=== PATIENT | male | born 1985 | race Caucasian/White ===

== ENCOUNTER 2019-01-29 00:19 | Inpatient (IN) | payer MEDICAID, BC, OTHER ==
[2019-01-29] MEDS: HYDROmorphONE 0.5 MG/0.5 ML SYG IV ×2 (01:35→02:17)
[2019-01-29] MEDS: DIPHTH/TET/ACEL PERTUSS (ADULT) 0.5 ML VIAL IM* (01:36)
[2019-01-29 02:04] LABS: ADD MAN DIFF? NO; BASOPHILS % 0.2 % (0.0-2.0); HEMATOCRIT 33.5 % (42.0-52.0); HEMOGLOBIN 9.9 g/dl (14.0-18.0); LYMPHOCYTES # 1.4 10^3/ul (0.8-2.9); LYMPHOCYTES % 15.3 % (15.0-51.0); MEAN CORPUSCULAR HEMOGLOBIN 20.9 pg (29.0-33.0); MEAN CORPUSCULAR HGB CONC 29.6 g/dl (32.0-37.0); MEAN CORPUSCULAR VOLUME 70.8 fl (82.0-101.0); MEAN PLATELET VOLUME 8.7 fl (7.4-10.4); MONOCYTE # 0.6 10^3/ul (0.3-0.9); MONOCYTES % 6.4 % (0.0-11.0); NEUTROPHIL # 7.2 10^3/ul (1.6-7.5); NEUTROPHILS % 77.8 % (39.0-77.0); PLATELET COUNT 348 10^3/UL (140-415); RED BLOOD COUNT 4.73 10^6/ul (4.70-6.10); RED CELL DISTRIBUTION WIDTH 18.8 % (11.5-14.5)
[2019-01-29 02:04] LABS: WHITE BLOOD COUNT 9.2 10^3/ul (4.8-10.8)
[2019-01-29] MEDS: CEFAZOLIN 1 GM/50 ML (PMX) 50 ML IVPB (02:17)
[2019-01-29 02:22] LABS: ANION GAP 11 (5-13); BLOOD UREA NITROGEN 22 mg/dl (7-20); CALCIUM 9.5 mg/dl (8.4-10.2); CARBON DIOXIDE 28 mmol/L (21-31); CHLORIDE 101 mmol/L (97-110); CREATININE 0.71 mg/dl (0.61-1.24); Estimated GFR > 60 mL/min (>60); GLUCOSE 97 mg/dl (70-220); POTASSIUM 4.3 mmol/L (3.5-5.1); SODIUM 140 mmol/L (135-144)
[2019-01-29] MEDS: IOHEXOL 100 ML (02:36)
[2019-01-29] MEDS: SOD CHLORIDE 0.9% 100 ML (02:36)
[2019-01-29] MEDS ORDERED: CEFAZOLIN 1 GM/50 ML (PMX) 50 ML IVPB (03:30)
[2019-01-29] MEDS: SOD CHLORIDE 0.9% 1,000 ML IV ×2 (04:32→16:34)
[2019-01-29] MEDS ORDERED: ALBUTEROL/IPRATROPIUM (NEB) 3 ML AMP HHN (05:00)
[2019-01-29] MEDS ORDERED: ACETAMINOPHEN 325 MG TAB PO (05:00)
[2019-01-29] MEDS ORDERED: HYDROCODONE/APAP (5/325) TAB PO (05:00)
[2019-01-29] MEDS ORDERED: VANCOMYCIN IV PER PHARMACY XX (05:00)
[2019-01-29] MEDS ORDERED: NACL 0.9% 3 ML SYG IV (05:00)
[2019-01-29] MEDS: PIPER-TAZO 3.375 GM IV (PMX) 100 ML IVPB ×3 (05:32→17:51)
[2019-01-29] MEDS: HYDROCODONE/APAP (5/325) TAB PO (05:33)
[2019-01-29] MEDS: VANCOMYCIN HCL 2 GM in SOD CHLORIDE 0.9% 500 ML IVPB (07:22)
[2019-01-29 07:34] LABS: IRON 23 ug/dl (35-150)
[2019-01-29 07:45] LABS: % IRON SATURATION 6 % SAT (22-52); TOTAL IRON BINDING CAPACITY 357 ug/dl (241-421)
[2019-01-29 08:27] LABS: FERRITIN 44.7 ng/ml (17.9-464.0)
[2019-01-29] MEDS: morphine 2 MG INJ IV ×3 (09:50→20:54)
[2019-01-29] MEDS: ONDANSETRON 4 MG INJ IV (09:50)
[2019-01-29] MEDS: VANCOMYCIN 1 GM in 250 ML IVPB ×2 (13:10→20:44)
[2019-01-29 15:23] LABS: INR 1.02; PROTIME 13.5 Sec (11.9-14.9); PT RATIO 1.1
[2019-01-29] MEDS ORDERED: VANCOMYCIN 1.5 GM/NS 250 ML 250 ML IVPB (19:00)
[2019-01-30] MEDS: PIPER-TAZO 3.375 GM IV (PMX) 100 ML IVPB ×3 (00:10→12:06)
[2019-01-30] MEDS: HYDROCODONE/APAP (5/325) TAB PO ×5 (00:12→22:20)
[2019-01-30] MEDS: morphine 2 MG INJ IV ×3 (04:13→14:26)
[2019-01-30] MEDS: SOD CHLORIDE 0.9% 1,000 ML IV ×2 (04:34→17:23)
[2019-01-30 05:52] LABS: VANCOMYCIN,TROUGH 9.2 ug/ml (10.0-20.0)
[2019-01-30 06:27] LABS: ALANINE AMINOTRANSFERASE 34 IU/L (13-69); ALBUMIN 3.3 g/dl (3.3-4.9); ALBUMIN/GLOBULIN RATIO 0.91; ALKALINE PHOSPHATASE 92 IU/L (42-121); ANION GAP 7 (5-13); ASPARTATE AMINO TRANSFERASE 29 IU/L (15-46); BILIRUBIN,INDIRECT 0.2 mg/dl (0-1.1); BILIRUBIN,TOTAL 0.2 mg/dl (0.2-1.3); BLOOD UREA NITROGEN 13 mg/dl (7-20); CALCIUM 8.6 mg/dl (8.4-10.2); CARBON DIOXIDE 28 mmol/L (21-31); CHLORIDE 107 mmol/L (97-110); CREATININE 0.67 mg/dl (0.61-1.24); Estimated GFR > 60 mL/min (>60); GLUCOSE 91 mg/dl (70-220); MAGNESIUM 2.1 mg/dl (1.7-2.5); PHOSPHORUS 4.5 mg/dl (2.5-4.9); POTASSIUM 4.5 mmol/L (3.5-5.1); SODIUM 142 mmol/L (135-144); TOTAL PROTEIN 6.9 g/dl (6.1-8.1)
[2019-01-30] MEDS: VANCOMYCIN 1.25 GM/NS 250 ML 250 ML IVPB ×2 (06:42→15:44)
[2019-01-30 07:48] LABS: ADD UMIC NO; UR ASCORBIC ACID NEGATIVE (NEGATIVE); UR BILIRUBIN (Dip) NEGATIVE (NEGATIVE); UR BLOOD (Dip) NEGATIVE (NEGATIVE); UR CLARITY CLEAR (CLEAR); UR COLOR YELLOW (YELLOW); UR GLUCOSE (Dip) NEGATIVE (NEGATIVE); UR KETONES (Dip) NEGATIVE (NEGATIVE); UR LEUKOCYTE ESTERASE (Dip) NEGATIVE Leu/ul (NEGATIVE); UR NITRITE (Dip) NEGATIVE (NEGATIVE); UR SPECIFIC GRAVITY (Dip) 1.025 (1.003-1.030); UR TOTAL PROTEIN (Dip) NEGATIVE (NEGATIVE); UR UROBILINOGEN (Dip) NEGATIVE (NEGATIVE)
[2019-01-30] MEDS: DAKINS 0.0125%(1/40) 473 ML SOLUTION TP (10:00)
[2019-01-30] MEDS: SOD FERRIC GLUC COMPLX 125 MG in SOD CHLORIDE 0.9% 100 ML IVPB (14:26)
[2019-01-30] MEDS ORDERED: [UNRECOGNIZED DRUG - REMARK] XX (18:00)
[2019-01-30] MEDS: AMOXICILLIN/CLAV 875 MG TAB PO (21:31)
[2019-01-30] MEDS: TRIMETHOPRIM/SULFAMETHOX (DS) TAB PO (21:31)
[2019-01-30] MEDS: FERROUS SULFATE (EC) 325 MG TAB PO (21:31)
[2019-01-31] MEDS: HYDROCODONE/APAP (5/325) TAB PO ×4 (03:13→16:54)
[2019-01-31] MEDS: TRIMETHOPRIM/SULFAMETHOX (DS) TAB PO (08:32)
[2019-01-31] MEDS: AMOXICILLIN/CLAV 875 MG TAB PO (08:32)
[2019-01-31] MEDS: FERROUS SULFATE (EC) 325 MG TAB PO (08:32)
[2019-01-31] MEDS: DAKINS 0.0125%(1/40) 473 ML SOLUTION TP (08:32)
== END 2019-01-31 17:16 | disposition home or self-care (01) | DRG 605 ==
LOC: E/R 00:19 → PP2 03:50
DX: S41.112A Laceration without foreign body of left upper arm, initial encounter (principal); D50.9 Iron deficiency anemia, unspecified; F11.11 Opioid abuse, in remission; F15.11 Other stimulant abuse, in remission; W26.8XXA Contact with other sharp object(s), not elsewhere classified, initial encounter; Y93.39 Activity, other involving climbing, rappelling and jumping off; Y92.89 Other specified places as the place of occurrence of the external cause; Y99.8 Other external cause status; Z91.19 Patient's noncompliance with other medical treatment and regimen; Z87.891 Personal history of nicotine dependence
CPT/HCPCS: 73060; 73206; 80048; 80053; 80202; 81003; 82728; 83540; 83735; 84100; 85025; 85610; 87040-91; 90471; 90715; 96374; 96375; 96376; 99217; 99285-25; G0378